=== PATIENT | male | born 1930 | race American Indian/Alaskan Native ===

== ENCOUNTER 2016-10-04 09:15 | Outpatient (CLI) | payer MEDICARE ==
--- NOTE | 2016-10-04 13:08 | Cat Scan Report ---
CT scan of abdomen and pelvis without IV contrast: History: Malignant neoplasm prostate. Findings: Normal lung bases. No pleural or pericardial effusion. Normal normal liver spleen pancreas and gallbladder. Small sliding hiatal hernia. Normal adrenals. There is exophytic cyst identified the left kidney measuring 6.3 x 6.1 cm. There is parapelvic cyst identified in the left kidney measuring 6 cm x 3.5 cm. Normal bladder. No free intraperitoneal fluid or. No evidence of adenopathy. Atherosclerotic abdominal aorta. No evidence of appendicitis or diverticulitis. Gaseous colon with moderate volume stool in colon. Fecal impaction in the rectosigmoid. 3 cm right inguinal hernia containing fat. Arthritic changes lumbar spine. No obvious lytic or blastic lesions. Impression: Large left renal cysts. Right inguinal hernia. Small hiatal hernia.
--- NOTE | 2016-10-04 15:50 | Nuclear Medicine Report ---
Nuclear medicine bone scan. History: Prostate carcinoma. Findings: Comparison is made to previous study on August 18, 2014. There is persistent focal increased activity in the lumbar spine most notable at the L2-3 level, similar to the previous study. A smaller area of increased activity is seen at L3. Correlation with the current CT of the abdomen using bone windows to evaluate the lumbar spine reveals large hypertrophic spurs at these levels. Minimal increased activity in the right lateral aspect of L5 posteriorly is also stable. Degenerative disc disease is seen at this level as well. The remainder of the axial and appendicular skeleton are unremarkable for age. Bilateral renal activity is noted. Increased activity is seen in the shoulders consistent with arthritic changes. Impression: No definite evidence of metastatic disease. The areas of increased activity in the lumbar spine correlate with extensive hypertrophic spurring seen on the current CT examination.
== END 2016-10-04 09:16 | disposition home or self-care (01) ==
LOC: NM 09:15
PROVIDERS: ATTEND Urology
DX: C61 Malignant neoplasm of prostate (principal); N28.1 Cyst of kidney, acquired; K44.9 Diaphragmatic hernia without obstruction or gangrene; K40.90 Unilateral inguinal hernia, without obstruction or gangrene, not specified as recurrent; M46.86 Other specified inflammatory spondylopathies, lumbar region; I70.0 Atherosclerosis of aorta; M46.06 Spinal enthesopathy, lumbar region; M51.36 Other intervertebral disc degeneration, lumbar region
CPT/HCPCS: 74176; 78306; A9503

== ENCOUNTER 2019-09-15 12:22 | Outpatient (CLI) | payer MEDICARE | END 2019-09-15 12:23 | disposition home or self-care (01) | LOC: CT 12:22 | PROVIDERS: ATTEND Urology | DX: C61 Malignant neoplasm of prostate (principal); M47.815 Spondylosis without myelopathy or radiculopathy, thoracolumbar region; M16.0 Bilateral primary osteoarthritis of hip | CPT/HCPCS: 74176 ==